=== PATIENT | male | born 2000 | race Caucasian/White ===

== ENCOUNTER 2022-02-03 12:46 | Emergency (ER) | payer SELFPAY ==
[~2022-02-03] VITALS: Ht 180.3 cm; Wt 86.0 kg
[2022-02-03] MEDS ORDERED: MORPHINE SULFATE 4 MG/ML CPJ (NOT FOR IM USE) IV ONE (13:15)
[2022-02-03] MEDS ORDERED: MIDAZOLAM HCL 2 MG/2 ML VIAL IV ONE (13:15)
[2022-02-03] MEDS ORDERED: ONDANSETRON HCL 4MG/2ML INJ IV ONE (14:00)
[2022-02-03] MEDS ORDERED: PROPOFOL 200MG/20ML VIAL IV ONE (14:00)
[2022-02-03 14:54] VITALS: BP 123/66
== END 2022-02-03 13:05 | disposition home or self-care (01) ==
LOC: ER 12:46
DX: S43.085A Other dislocation of left shoulder joint, initial encounter (principal); W18.39XA Other fall on same level, initial encounter; Y93.89 Activity, other specified; Y92.89 Other specified places as the place of occurrence of the external cause; Y99.8 Other external cause status; Z88.0 Allergy status to penicillin
CPT/HCPCS: 23650; 73030; 96374; 96375; 99152; 99285; J2250; J2270; J2405; J2704